=== PATIENT | female | born 1995 | race Caucasian/White ===

== ENCOUNTER 2016-07-09 20:57 | Emergency (ER) | payer OTHER ==
[~2016-07-09] VITALS: Ht 162.6 cm; Wt 55.0 kg
[2016-07-09 21:24] VITALS: Ht 162.6 cm; Wt 55.0 kg
[2016-07-10] MEDS ORDERED: GUAIFENESIN/DM 5ML CUP PO ONE
--- NOTE | 2016-07-10 01:07 | RADRPT ---
PROCEDURE: CHEST - 1 VIEW CLINICAL INDICATION: 20-year-old female with cough. TECHNIQUE: A single frontal AP upright portable view of the chest was performed. The images were reviewed on a PACS workstation. COMPARISON: None. FINDINGS: The cardiomediastinal silhouette has a normal appearance. There is no evidence for an infiltrate. T he pulmonary vascularity is within normal limits. There is no evidence for pneumothorax or pneumomed iastinum. The osseous structures are intact. IMPRESSION: No evidence for active cardiopulmonary disease. .Florian Greco MD, MD Date Time Electronically viewed and signed by .Florian Greco MD, MD on 07/10/2016 01:07 .Carmen/
--- NOTE | 2016-07-10 01:07 | ERD ---
ER Documentation Chief Complaint Date/Time DATE: 07/10/16 TIME: 01:05 Chief Complaint cough w/ sob x 1 day HPI This is a 20-year-old female who presents to the emergency room for evaluation of a cough with mild shortness of breath for 1 days duration. This patient states that she was seen in her student clinic [employer] and there was a concern for possible pericarditis. This patient denies having an EKG done, does not know how that diagnosis was made at her student clinic. She states her shortness of breath is only when she has a cough. She has not taken any medication for this and came to the ER today for evaluation. ROS All systems reviewed and are negative except as per history of present illness. Allergies Allergies: Coded Allergies: No Known Allergy (Unverified , 07/09/16) PMhx/Soc Medical and Surgical Hx: pt denies Medical Hx, pt denies Surgical Hx Hx Alcohol Use: No Hx Substance Use: No Hx Tobacco Use: No Smoking Status: Never smoker Physical Exam Vitals Vital Signs Date Time Temp Pulse Resp B/P Pulse Ox O2 Delivery O2 Flow Rate FiO2 07/09/16 21:24 98.3 113 20 111/80 98 Physical Exam Const: No acute distress, sitting comfortably and in no acute distress Head: Atraumatic Eyes: Normal Conjunctiva ENT: Normal External Ears, Nose and Mouth. Neck: Full range of motion..~ No meningismus. Resp: Clear to auscultation bilaterally Cardio: Regular rate and rhythm, no murmurs Abd: Soft, non tender, non distended. Normal bowel sounds Skin: No petechiae or rashes Back: No midline or flank tenderness Ext: No cyanosis, or edema Neur: Awake and alert Psych: Normal Mood and Affect Results 24 hrs Current Medications Medications (Trade) Dose Ordered Sig/Taylor Route PRN Reason Start Time Stop Time Status Last Admin Dose Admin Guaifenesin/ Dextromethorphan (Robitussin Dm Liquid Cup) 5 ml ONCE ONCE PO 07/10/16 00:00 07/10/16 00:01 DC 07/10/16 00:13 Procedures/MDM EKG: Rate/Rhythm: [Normal Sinus Rhythm] QRS, ST, T-waves: [No changes consistent w/ acute ischemia] Impression: [No evidence of ischemia or arrhythmia] Chest X-ray 1V Interpreted by me: Soft Tissue: No acute abnormalities Bones: No acute abnormalities Mediastinum/Cardiac Silhouette/Lungs: [No acute abnormalities] This 20-year-old female presents to the emergency room for evaluation of a cough. And mild shortness of breath. When I evaluated her she was not hypoxic , no respiratory distress. EKG does not reveal pericarditis. Chest x-ray is clear. This patient is likely suffering from a viral syndrome. She is nontoxic -appearing, she was given Robitussin-DM in the emergency room and will be discharged home with a prescription for Robitussin and Motrin. Patient presents with straightforward URI symptoms. Clinical exam is not consistent with pneumonia, sepsis or significant bacterial disease. Patient is well hydrated, non-toxic and appropriate for outpatient, supportive care. Departure Diagnosis: Primary Impression: Cough Condition: Stable SUSIE RUEDA DO Jul 10, 2016 01:07
[2016-07-10] MEDS ORDERED: IBUP800T25 PO (01:08)
[2016-07-10] MEDS ORDERED: UDROBDM PO (01:08)
== END 2016-07-10 01:21 | disposition home or self-care (01) ==
LOC: E/R 20:57
DX: R05 Cough (principal); R06.02 Shortness of breath
CPT/HCPCS: 71010; 93005; Z7610